=== PATIENT | male | born 1995 | race Caucasian/White ===

== ENCOUNTER 2016-06-14 23:32 | Inpatient (IN) | payer OTHER, SELFPAY ==
[~2016-06-14] VITALS: Ht 180.3 cm; Wt 123.6 kg
--- NOTE | ~2016-06-14 | EEG ---
ADMIT: 06/15/2016 RM/LOC: 502 [facility] MR#: [id number] [id number] [place], [place] [address] MILLICENT CURIEL [address] [place] [address] Inpatient EEG SEX: M AGE: 21 : 1995 DATE: 06/16/2016 EEG NO: [id number]. HISTORY OF PRESENT ILLNESS: The patient is a 21-year-old gentleman with history of spells that were originally interpreted as partial complex seizures with secondary generalization. He is on Keppra at the time of recording. This is a routine 21-channel digital EEG recording performed on a cooperative patient who was awake, drowsy, and asleep in various portions of the study. The study was performed using the 10/20 International electrode placement system. During wakefulness, the background activity is fairly well organized consisting of regular and symmetrical medium amplitude 9.5 to 10 hertz activity seen posteriorly, which attenuates with eye opening. In addition, moderate amount of low-amplitude fast activity is seen anteriorly. During periods of drowsiness, there is generalized attenuation of the posterior dominant rhythm with appearance of medium amplitude 6 to 7 Hz activity seen bilaterally. During stage II non-REM sleep, vertex sharp transients, K complexes, and sleep spindles with frequency of 12 to 14 hertz were seen symmetrically over the central regions. There were no focal slowing nor epileptiform discharges seen in this recording. Hyperventilation was not performed secondary to history of head injury. Photic stimulation was performed at 1-33 hertz frequency, which elicited bilateral occipital driving response. IMPRESSION: This is a normal awake, drowsy, and asleep EEG recording. COMMENTS: Normal cardiac rhythm was noted throughout this recording. Brooks Peters MD/ lukas JOB #: [id number] CC: Ashutosh Guevara MD, Attending Physician Ashutosh Guevara MD, Family Physician
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
--- NOTE | 2016-06-18 08:17 | HP ---
ADMIT: 06/15/2016 RM/LOC: 502 [facility] MR#: [id number] [address] [place], [place] [address] SHANITA CURIEL [address] [place] [address] History and Physical SEX: M AGE: 21 : 1995 DATE OF SERVICE: 06/15/2016 CHIEF COMPLAINT: Seizure. HISTORY OF PRESENT ILLNESS: Shanita is a 21-year-old white male with a history of seizure disorder, who presented to the [facility] Emergency Department last evening after he had a witnessed seizure at home and subsequently several seizures witnessed in the ER. He was on Keppra as an outpatient, but stopped the medication about a month ago due to feeling dizzy, woozy, and nauseated while taking it. These symptoms disappeared but as a result, he is now having seizures again. He was treated with 2 mg of IV Ativan and loaded with Keppra, his seizures stopped and he was subsequently admitted to the hospital. He has had no further seizures in the overnight. PAST MEDICAL HISTORY: 1. Seizure disorder. 2. Obesity. 3. Tobacco abuse. PAST SURGICAL HISTORY: Noncontributory. MEDICATIONS: His outpatient Keppra dose is to be 1500 mg twice daily. ALLERGIES: NO KNOWN MEDICAL ALLERGIES. SOCIAL HISTORY: Smokes anywhere from a quarter to 3/4 of pack of cigarettes per day. He denies any significant alcohol or recreational drug use. He is working at [employer]. FAMILY HISTORY: Noncontributory. REVIEW OF SYSTEMS: He denies any chest pain, abdominal pain, fevers, cough, chills, rash, or headaches. Apparently, he did fall when he had the seizure. Workup in the ER for head injuries or neck injuries was negative. Remainder of his review of systems is as per HPI. All others reviewed and were negative. PHYSICAL EXAMINATION: VITAL SIGNS: Blood pressure is 115/64, pulse is 70, respirations 14, temp 95.9, O2 saturation is 98% on room air. GENERAL: He is awake, alert, no acute distress. Comfortable in hospital bed. HEENT: Normocephalic, atraumatic. NECK: Supple. No lymphadenopathy. No thyromegaly. HEART: Regular rate and rhythm. No murmurs, gallops, or rubs. LUNGS: Clear to auscultation bilaterally. ABDOMEN: Obese, soft, nontender, nondistended. No rebound, guarding, or masses. EXTREMITIES: No cyanosis, clubbing, or edema. LABORATORY AND X-RAY DATA: CBC on admission is remarkable only for a mildly ADMIT: 06/15/2016 RM/LOC: 502 [facility] MR#: [id number] [address] [id number] [place], [place] [address] [place] [address] History and Physical SEX: M AGE: 21 : 1995 elevated white count of 11. CMP is otherwise unremarkable. Blood alcohol level was 13 mg/dL. Prolactin was 7.4. INR was unremarkable. Head CT without contrast was negative. C-spine CT was negative. ASSESSMENT: 1. Status epilepticus. 2. Medication noncompliance. 3. Epilepsy/seizure disorder. 4. Tobacco abuse. 5. Obesity. PLAN: Put him back on his oral Keppra dose while he is here. We will have Dr. Peters with Neurology consult. Further management will be dependent on the patient's clinical course. Ashutosh Guevara MD/ lukas JOB #: [id number] CC: Ashutosh Guevara, Attending Physician Ashutosh B Brosz, Family Physician
[2016-06-20] MEDS ORDERED: KEPPRA DPS500 MG PO (13:39)
[2016-06-20] MEDS ORDERED: MAALOX DPS30 ML PO (13:39)
[2016-06-20] MEDS ORDERED: TYLENOL DPS325 MG PO (13:39)
[2016-06-20] MEDS ORDERED: VIMPAT50 MG PO (13:39)
[2016-06-20] MEDS ORDERED: ZANTAC DPS150 MG PO (13:40)
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
--- NOTE | 2016-07-11 10:52 | EEG ---
ADMIT: 06/15/2016 RM/LOC: 502 [facility] MR#: [id number] [address] [place], [place] [address] MILLICENT CURIEL [address] [place] [address] Inpatient EEG SEX: M AGE: 21 : 1995 DATE: 06/17/2016 EEG NO: 1720. HISTORY OF PRESENT ILLNESS: The patient is a 21-year-old gentleman with history of spells that were originally interpreted as partial complex seizures with secondary generalization. The patient is on Keppra and Vimpat at the time of the recording. This is a prolonged study with duration of 1 hour and 10 minutes. The 21- channel digital EEG recording performed on a cooperative patient, who was awake, drowsy, and asleep in various portions of the study. The study was performed using the 10/20 International Electrode Placement System. During wakefulness, the background activity is fairly well organized, consisting of regular and symmetrical medium amplitude 9.5 to 10 Hz activity seen posteriorly, which attenuates with eye opening. In addition, moderate amount of low-amplitude fast activity is seen anteriorly. During periods of drowsiness, there is generalized attenuation of the posterior dominant rhythm with appearance of medium amplitude 6 to 7 Hz activity seen bilaterally. During stage II non-REM sleep, vertex sharp transients, K complexes, and sleep spindles with frequency of 12 to 14 Hz were seen symmetrically over the central regions. There were no focal slowing nor epileptiform discharges seen in this recording. Hyperventilation was performed with fair effort and failed to produce slowing of the posterior dominant rhythm. Photic stimulation performed at 1 to 33 Hz frequency, elicited bilateral occipital driving response. IMPRESSION: This is a normal, awake, drowsy, and asleep prolonged 70 minutes long EEG recording. COMMENTS: Normal cardiac rhythm is noted throughout this recording. Brooks Peters MD/ lukas JOB #: [id number] CC: Ashutosh Guevara MD, Attending Physician Ashutosh Guevara MD, Family Physician
== END 2016-06-19 11:09 | disposition home or self-care (01) | DRG 101 ==
LOC: ER 23:32 → 5MS 06-15 00:40
PROVIDERS: ADMIT Family Medicine
PROC: 4A10X4Z Monitoring of Central Nervous Electrical Activity, External Approach (ICD-10-PCS; principal; 2016-06-16)
PROC: 3E0234Z Introduction of Serum, Toxoid and Vaccine into Muscle, Percutaneous Approach (ICD-10-PCS; 2016-06-19)
DX: G40.201 Localization-related (focal) (partial) symptomatic epilepsy and epileptic syndromes with complex partial seizures, not intractable, with status epilepticus (principal); E66.9 Obesity, unspecified; F17.210 Nicotine dependence, cigarettes, uncomplicated; Z23 Encounter for immunization; Z87.820 Personal history of traumatic brain injury; Z91.14 Patient's other noncompliance with medication regimen; T42.6X6A Underdosing of other antiepileptic and sedative-hypnotic drugs, initial encounter; Z91.128 Patient's intentional underdosing of medication regimen for other reason; Z68.37 Body mass index [BMI] 37.0-37.9, adult

== ENCOUNTER 2016-07-25 16:10 | Emergency (ER) | payer OTHER ==
[~2016-07-25 16:10] MED LIST: KEPPRA DPS500 MG PO; MAALOX DPS30 ML PO; TYLENOL DPS325 MG PO; VIMPAT50 MG PO; ZANTAC DPS150 MG PO
--- NOTE | 2016-08-13 21:34 | ER ---
ADMIT: 07/25/2016 RM/LOC: ER [facility] MR#: [id number] 26[address] [facility] [address] [place], [place] [address] MILLICENT CURIEL [address] [place] [address] Emergency Room Report SEX: M AGE: 21 : 1995 DATE: 07/25/2016 ADDENDUM: CHIEF COMPLAINT: Seizure disorder. HISTORY OF PRESENT ILLNESS: This is a 21-year-old who was at work. It sounds like he has been sleep-deprived. He was at work and he had a passing out episode and with some shaking. He has questionable history of epilepsy seizures. He is on Keppra and Vimpat. He was actually just hospitalized about a month ago for a workup of seizures. He had normal EEG, but they did add Vimpat to see if that would reduce any kind of seizure activity. He has not had a seizure yet since then until today, and while here in the emergency room, he did have an episode of shaking, but he was alert and he talked to me while having it. Did not allow me to drop his hand on his head. I told him at this time, since he has a seizure disorder, he is on two different medications. He is to follow up closely with Dr. Peters. We did not need any further workup. I did attempt to call Dr. Peters's office. He is not in the office. I did tell the office about the patient is here and that they will be calling tomorrow for an appointment. CLINICAL IMPRESSION: Seizure with history of epilepsy. DISPOSITION: I told him to continue his medications. Go home, rest, get plenty of sleep, and follow up tomorrow with Dr. Peters. NAILA Ervin / Jaun Rothman MD / lukas JOB #: [id number] CC: Arnol Solis MD, Attending Physician Brooks Peters MD, Family Physician
== END 2016-07-25 16:40 | disposition home or self-care (01) ==
LOC: ER 16:10
DX: G40.909 Epilepsy, unspecified, not intractable, without status epilepticus (principal); F17.210 Nicotine dependence, cigarettes, uncomplicated; Z79.899 Other long term (current) drug therapy

== ENCOUNTER → 2016-08-12 | Outpatient (CLI) | payer OTHER ==
--- NOTE | 2016-08-25 15:52 | SS ---
ADMIT: 08/12/2016 RM/LOC: [facility] MR#: [id number] 26[address] [facility] [address] [place], [place] [address] MILLICENT CURIEL [address] [place] [address] Sleep Study SEX: M AGE: 21 : 1995 STUDY DATE: 08/12/2016 CLINICAL HISTORY: A 21-year-old male, body mass index is 38, 70 inches tall, 265 pounds, who has excessive daytime sleepiness, poor sleep at night, undergoing home sleep study for evaluation of obstructive sleep apnea. HOME SLEEP STUDY FINDINGS: RECORDING INFORMATION: Recording date is 08/12/2016. Bedtime starts 11:16 p.m., bedtime ends 5:58 a.m. NOX-T3 home sleep study device was used with good signal quality. BREATHING: No clear evidence of obstructive sleep apnea. Apnea-hypopnea of 4.3. OXYGEN SATURATION: Mean sleeping oxygen saturation is 91%. CARDIAC: Average pulse is 56 beats per minute. BODY POSITION: The patient slept in the supine lateral position. IMPRESSION: No clear evidence of obstructive sleep apnea based on this home sleep study. Apnea-hypopnea index of 4.3. If symptoms of obstructive sleep apnea persistent especially with ongoing daytime sleepiness, then further evaluation with in-lab polysomnogram may also be considered. Clinical correlation is needed. Ross Trinh MD/ lukas JOB #: [id number] CC: Ashutosh Guevara MD, Attending Physician Ashutosh Guevara MD, Family Physician Ashutosh Guevara MD
== END | disposition home or self-care (01) ==
LOC: CARD 11:00
DX: G47.10 Hypersomnia, unspecified (principal)